=== PATIENT | female | born 1970 | race African-American/Black ===

== ENCOUNTER → 2017-11-22 | Day surgery (SDC) | payer MEDICAID ==
[~2017-11-22] VITALS: Ht 158.8 cm; Wt 93.9 kg
[~2017-11-22] MED LIST: FENTANYL CITRATE/PF 50MCG/ML 2ML VIAL IV PRN; FENTANYL CITRATE/PF 50MCG/ML 2ML VIAL ONE; HYDROMORPHONE HCL/PF 2MG/ML CPJ IV PRN; LACTATED RINGERS 1,000 ML IV SCH; LIDOCAINE HCL/PF 1% 10 MG/ML 5ML VIAL ONE; MIDAZOLAM HCL 2 MG/2 ML VIAL ONE; ONDANSETRON HCL 4MG/2ML VIAL ONE; PROPOFOL 200MG/20ML VIAL IV ONE
[2017-11-22 07:37] LABS: BASOPHILS % 0.5 % (0.0-2.0); EOSINOPHILS % 4.1 % (0.0-5.0); HEMOGLOBIN. 11.4 g/dL (12.0-16.0); MEAN CORPUSCULAR HEMOGLOBIN 22.7 pg (28.0-32.0); MEAN CORPUSCULAR VOLUME 71.8 fL (81.0-99.0); MEAN PLATELET VOLUME 8.2 fl (7.4-10.4); MONOCYTES % 5.5 % (2.0-8.0); NEUTROPHILS % 50.9 % (40.0-76.0); PLATELET 281 x1000/uL (130-400); RED BLOOD CELL COUNT 5.01 mill/uL (4.2-5.4); RED CELL DISTRIBUTION WIDTH 15.2 % (11.6-14.6)
[2017-11-22 07:41] LABS: CHLORIDE 109 mEq/L (98-107)
[2017-11-22 07:44] LABS: INR 1.1; PARTIAL THROMBOPLASTIN TIME 25.6 sec (23.4-31.0); PROTHROMBIN TIME 11.9 sec (9.4-11.6)
[2017-11-22 07:50] LABS: UCG SCREEN NEGATIVE
== END ==
LOC: OR 06:41
PROVIDERS: ATTEND Obstetrics & Gynecology
DX: N88.8 Other specified noninflammatory disorders of cervix uteri (principal); N93.8 Other specified abnormal uterine and vaginal bleeding; M19.079 Primary osteoarthritis, unspecified ankle and foot; Z98.890 Other specified postprocedural states; Z91.013 Allergy to seafood
CPT/HCPCS: 36415; 58120; 80053; 81025; 85025; 85610; 85730; 86850; 86900; 86901; 88305; C1758; J2250; J2405; J3010; J3490; J7042; J7120; J2704